=== PATIENT | female | born 1980 | race Caucasian/White ===

== ENCOUNTER 2020-11-26 21:26 | Emergency (ER) | payer OTHER, SELFPAY ==
[2020-11-26 21:30] VITALS: BP 126/72; PULSE 100; RESP 20; TEMP 36.2; O2SAT 97
--- NOTE | 2020-11-26 22:16 | ED.BACK ---
HPI - Back Pain/Injury General Chief Complaint: Back Pain/Injury Stated Complaint: my butt is cold, pain down right leg Time Seen by Provider: 11/26/20 21:56 Source: patient and old records reviewed Mode of arrival: ambulatory Limitations: no limitations History of Present Illness HPI Narrative: A 40-year-old female presents to the emergency department [facility] with complaints of an exacerbation of her back pain. Patient states she was injured at work last August. Patient has since been diagnosed with sciatica. She has been trying to seek treatment but has been having issues getting it approved by the [employer] people. [facility] she complains of pain and numbness running down her right leg. She denies any issues with bowel or bladder incontinence. Related Data Allergies Allergy/AdvReac Type Severity Reaction Status Date / Time No Known Allergies Allergy Mild Verified 11/26/20 22:31 Review of Systems Review of Systems: Narrative: CONSTITUTIONAL: Denies fever, chills, or sweats. EYES: Denies visual changes, redness, or discharge. ENT: Denies rhinorrhea, congestion, sore throat, or otalgia. CARDIOVASCULAR: Denies chest pain, palpitations, or edema. RESPIRATORY: Denies cough or dyspnea. GASTROINTESTINAL: Denies abdominal pain, nausea, vomiting, or diarrhea. GENITOURINARY: Denies dysuria or hematuria. SKIN: Denies rash or itching. MUSCULOSKELETAL: Denies joint pain, or myalgia. Endorses exacerbation of back pain NEUROLOGIC: Denies headache, numbness, dizziness, or weakness. PSYCHIATRIC: Denies anxiety or depression. Exam Narrative: Exam Narrative: GENERAL: Well-appearing, well-nourished, and in no acute distress. Patient moves about the exam bed without hindrance, she is able to easily move around to show me her back and lower leg. HEAD: Normocephalic, atraumatic. EYES: PERRLA and EOMI. ENT: Nares clear, no rhinorrhea or epistaxis. Mucous membranes moist. Oropharynx without tonsillar hypertrophy exudate or other lesions. Bilateral TMs pearly [place] nonbulging NECK: Supple. No adenopathy or masses. No carotid bruits or JVD CHEST: Clear to auscultation. No respiratory distress. No wheezes rales or rhonchi HEART: Regular rate and rhythm. No murmur heard. Normal peripheral pulses. ABDOMEN: Soft, nontender, nondistended, normal active bowel sounds. EXTREMITIES: Normal range of motion. No edema. +2 patellar reflex on the right, +2 Achilles reflex on the right SKIN: Warm, dry, no rash. NEURO: No focal deficits. Alert and oriented x3. PSYCH: Normal mood and affect. Course Reevaluation(s) Reevaluation #1: Reevaluated and provided care update. Patient was sleeping on her right side, comfortably. Discussed with her disposition, she states that she is feeling better and ready to go home. Time: 23:13 Vital Signs Vital signs: Vital Signs Temperature 36.2 C L 11/26/20 21:30 Pulse Rate 100 11/26/20 21:30 Respiratory Rate 20 11/26/20 21:30 Blood Pressure 126/72 11/26/20 21:30 Pulse Oximetry 97 11/26/20 21:30 Temperature 36.2 C L 11/26/20 21:30 Pulse Rate 100 11/26/20 21:30 Respiratory Rate 20 11/26/20 21:30 Blood Pressure 126/72 11/26/20 21:30 Pulse Oximetry 97 11/26/20 21:30 MDM - Back Pain/Injury MDM Narrative Medical decision making narrative: In brief this is a 40-year-old female who came into the emergency department today for an exacerbation of a back injury. Patient has sciatica type symptoms related to this. She was treated with anti-inflammatories, steroids and muscle relaxers. Patient will be given prescriptions for such upon discharge. She is recommended to follow-up with her treating physician. Discharge Plan Discharge Clinical Impression: Lumbar radiculopathy, Sciatica Patient Disposition: Home, Self-Care Condition: Improved Instructions: Antibiotic Form, Sciatica (ED) Prescriptions: New prednisone 20 mg tablet 40 mg PO DAILY Qty: 10 RF: 0 methocarbamol 50
[2020-11-26] MEDS: DEXAMETHASONE SOD PHOS INJ 4 MG/ML VIAL 10 MG IV PUSH (22:23)
[2020-11-26] MEDS: KETOROLAC 15 MG/ML VIAL (*BKC) IV PUSH (22:23)
[2020-11-26] MEDS: methocarbamoL 750 MG TABLET PO (22:29)
[2020-11-26 23:28] VITALS: BP 123/71; PULSE 97; RESP 21; O2SAT 98
== END 2020-11-26 23:30 | disposition home or self-care (01) ==
PROVIDERS: Emergency Provider Emergency Medicine; PCP Family Medicine
DX: M54.16 Radiculopathy, lumbar region (principal); M54.41 Lumbago with sciatica, right side
CPT/HCPCS: 96374; 96375; 99284; A9270; J1100; J1885